=== PATIENT | female | born 1980 | race Caucasian/White ===

== ENCOUNTER 2017-07-02 07:45 | Emergency (ER) | payer OTHER ==
[~2017-07-02] VITALS: Ht 165.1 cm; Wt 47.7 kg
[2017-07-02 07:48] VITALS: BP 110/71; PULSE 83; RESP 16; O2SAT 100
[2017-07-02] MEDS ORDERED: 0.9% Sodium Chloride 1,000 ML IV ONE (07:52)
[2017-07-02] MEDS ORDERED: Ketorolac 15 mg/mL Inj IVPUSH ONE (07:55)
[2017-07-02 08:08] LABS: BASOPHILS % (AUTO) 0.3 % (0-3); MONOCYTES % (AUTO) 4.2 % (4-12); Mean Corpuscular Hemoglobin 29.5 pg (27.0-35.0); Platelet Count 396 bil/L (150-400)
[2017-07-02] MEDS: Ondansetron 2 mg/mL 2 mL Inj IVPUSH PRN ×3 (08:15→12:27)
[2017-07-02] MEDS: HYDROmorphone 0.5 mg/0.5 mL iSecure Syringe IVPUSH PRN ×3 (08:16→12:29)
--- NOTE | 2017-07-02 08:23 | ED.REPORT ---
HPI-Abd Pain F Under 38 Date of Service Jul 02, 2017 ED Provider: Fabián Maier MD Patient is a 37 year old female who presents to the ED complaining of progressively worsening RLQ pain onset 10 days ago. Her pain radiates to her back and down her R thigh. She denies constipation, fever, chills, dysuria, vomiting, or any other symptoms. Pt reports her last period was different then previous periods. She is not sexually active and has not been for some months. Nursing Notes Stated Complaint: ABDOMINAL PAIN Chief Complaint: Female Abdominal Pain Nursing Notes Reviewed: Yes Allergies: Coded Allergies: No Known Allergies (Unverified , 07/02/17) General Time Seen by MD: 07:55 Chief Complaint Abdominal pain Hx Obtained From: Patient Arrived By: Walk-in Sudden in Onset?: No Onset Occurred: 1 week ago (10 days ago) Symptom Duration: Since onset Progression since Onset: Gradually worsening Location: : RLQ Quality: Painful Radiation: : Back Severity: Current: Moderate Severity: Maximum: Moderate Pertinent Negative: Pt denies other symptoms Context Related History: Denies: Abdominal surgery Similar Sx Previous: No Past Medical History Past Medical History Notes: PCP: Wiliam Hernandez Past Medical History 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 Physical Exam Initial Vital Signs Vital Signs (First) Date Time Temp Pulse Resp B/P Pulse Ox O2 Delivery O2 Flow Rate FiO2 07/02/17 07:48 36.5 83 16 110/71 100 Room Air Initial VS: Reviewed, Vital signs normal Head / Eyes: Atraumatic, Normocephalic Neck: Full range of motion Skin: Warm, Dry Neurologic: Alert, Oriented, Nonfocal Psychiatric: Mood/affect normal, Behavior normal, Normal thought content General/Constitutional: Awake, Alert Respiratory / Chest: Atraumatic, Breath sounds NL, Breath sounds = bilat, No respiratory distress Cardiovascular: Heart rate NL, Regular rhythm, Heart sounds NL Tenderness/Guarding/Rebound: Positive: Tender RLQ... Guarding present psoas sign positive Flank / Spine / Paraspinal: Positive: Flank tender R Interpretation & Diagnostics US PELVIC SONOGRAM + TRANSVAGINAL SONOGRAM: IMPRESSION: No significant abnormality can be seen. No appendix can be seen, either normal or abnormal. Note: Concordant preliminary findings given by the computer technician upon the completion of the examination to Dr. Maier at 12:20 PM on July 02, 2017. Dictated by: Jg Rayo M.D. on 07/02/2017 at 12:57 Approved by: Jg Rayo M.D. on 07/02/2017 at 12:59 Lab Results Interpretation Result Diagram: 07/02/17 0804 07/02/17 0804 Test 07/02/17 08:04 07/02/17 08:31 White Blood Count 7.1th/mm3 (3.8-10.1) Red Blood Count 4.65mil/mm3 (3.90-5.20) Hemoglobin 13.7g/dL (12.0-15.6) Hematocrit 40.9% (35.0-46.0) Mean Corpuscular Volume 88.0fL (81-100) Mean Corpuscular Hemoglobin 29.5pg (27.0-35.0) Mean Corpuscular Hemoglobin Concent 33.5% (32.0-37.0) Red Cell Distribution Width 14.1% (12.3-15.4) Platelet Count 396bil/L (150-400) Neutrophils (%) (Auto) 70.0% (40-74) Lymphocytes (%) (Auto) 24.4% (14-46) Monocytes (%) (Auto) 4.2% (4-12) Eosinophils (%) (Auto) 1.0% (0-5) Basophils (%) (Auto) 0.3% (0-3) Sodium Level 139mEq/L (134-144) Potassium Level 4.1mEq/L (3.5-5.2) Chloride Level 102mEq/L (97-108) Carbon Dioxide Level 21mmol/L (18-29) Blood Urea Nitrogen 17mg/dL (6-20) Creatinine 0.56mg/dL (0.57-1.00) Estimat Glomerular Filtration Rate 173mL/min (>59) Glucose Level 87mg/dL (60-99) Lactic Acid Level 0.7mmol/L (0.4-2.0) Calcium Level 9.0mg/dL (8.5-10.1) Magnesium Level 2.2mg/dL (1.6-2.6) Total Bilirubin 0.2mg/dL (0.0-1.2) Aspartate Amino Transf (AST/SGOT) 14U/L (0-50) Alanine Aminotransferase (ALT/SGPT) 9U/L (0-32) Alkaline Phosphatase 43U/L (25-150) Total Protein 7.0g/dL (6.4-8.4) Albumin 4.5g/dL (3.4-5.0) Lipase 35U/L (13-60) Urine Color Yellow (YELLOW) Urine Appearance Hazy (CLEAR,HAZY) Urine pH 5.5 (5.0-8.0) Urine Specific [place] 1.030 (1.003-1.035) Urine Protein Negativemg/dL (NEG,TRACE) Urine Glucose (UA) Negativemg/dL (NEGATIVE) Urine Ketones 15mg/dL (NEGATIVE) Urine Occult Blood Negative (NEGATIVE) Urine Nitrite Negative (NEGATIVE) Urine Bilirubin Negative (NEGATIVE) Urine Urobilinogen Normalmg/dL (NORMAL) Urine Leukocyte Esterase Negative (NEGATIVE) Urine RBC 0-2/hpf (0-2) Urine WBC 0-5/hpf (0-5) Urine Epithelial Cells Occasional/hpf (NONE-MOD) Urine Crystals None seen (NONE SEEN) Urine Bacteria Moderate/hpf (NONE-FEW) Urine Hyaline Casts None/lpf (NONE) Urine Granular Casts None seen (NONE SEEN) Urine Waxy Casts None seen (NONE SEEN) Urine Red Blood Cell Casts None seen (NONE SEEN) Urine White Blood Cell Casts None seen (NONE SEEN) Urine Mucus Present (None Seen) Urine Trichomonas None seen (NONE SEEN) Urine Yeast None (NONE SEEN) Urinalysis Comment None Urine Culture Reflexed Indicated CT Abd / Pelvis Interpretation IMPRESSION: 1. Visualized portions of the appendix are normal. 2. Complex right adnexal cyst. 3. Trace free fluid within the pelvic cul-de-sac is within physiologic limits. Dictated by: Jaz Ndiaye MD, PhD on 07/02/2017 at 11:53 Approved by: Jaz Ndiaye MD, PhD on 07/02/2017 at 12:00 Study type: Abdominal CT IV contrast, Abdom CT oral contrast Interpretation / Wet Read by: Interpret - Radiologist Re-Eval/Medical Decision Re-Evaluation/Progress : Time of Eval: 13:24 Patient Status: Condition improved Re-Evaluation/Progress Note: Patient resting comfortably and crying. I asked her why she was crying and she said that it was related to life stressors and not because of her abdominal pain. I told her that we were unable to discover definitive cause for her pain and the child follow up with her primary care doctor. She articulated understanding of this and agrees to comply with recommendations. Discharge & Departure Primary Impression: Abdominal pain Abdominal location: right lower quadrant Qualified Code: R10.31 - Right lower quadrant pain Discharge Condition All VS Reviewed: Yes Condition: Stable Patient Instructions: Acute Abdominal Pain (ED) Additional Instructions: No dangerous cause for your abdominal pain was discovered today. Follow-up with your doctor in the coming days for further evaluation as indicated. I recommend Tylenol or ibuprofen as needed for pain. I also recommend copious oral hydration and a bland diet for now. Follow up right away for high fever, worsening pain, vomiting or other new or worrisome symptoms. Referrals: OTHER,PHYSICIAN Scribe Attestation Portions of this note were transcribed by Hansel Camacho. I, Dr. Maier personally performed the history, physical exam and medical decision-making; I reviewed and confirmed the accuracy of the information in the transcribed note. Signed by: Sammy Gonzales, 07/02/17 Fabián Maier MD Jul 02, 2017 08:23 HANSEL CAMACHO Jul 02, 2017 09:48
[2017-07-02 08:46] LABS: Magnesium 2.2 mg/dL (1.6-2.6)
[2017-07-02 09:11] LABS: APPEARANCE,URINE HAZY (CLEAR,HAZY); COLOR,URINE YELLOW (YELLOW); OCCULT BLOOD,URINE NEGATIVE (NEGATIVE); PH,URINE 5.5 (5.0-8.0)
[2017-07-02 09:13] LABS: UROBILINOGEN,URINE NORMAL (NORMAL)
[2017-07-02] MEDS ORDERED: Iohexol 300 mg/mL 30 mL Inj PO ONE (10:25)
[2017-07-02 12:30] VITALS: BP 116/71; PULSE 54; RESP 14; O2SAT 99
--- NOTE | 2017-07-02 13:01 | DRSVH ---
PROCEDURE: US PELVIC SONOGRAM + TRANSVAGINAL SONOGRAM INDICATIONS: RLQ pain TECHNIQUE: Real-time scanning was performed of the pelvic organs, with image documentation. Additional endovagi nal scanning was necessary due to incomplete visualization of the adnexal and endometrial structures by transabdominal scanning. COMPARISON: [facility], [place], PELVIC COMPLETE, 06/17/2017, 21:13. [facility], [place], PELVIC COM PLETE, 06/23/2017, 14:22. [facility], CT, CT ABD PELVIS W CON, 07/02/2017, 12:35. FINDINGS: (orthogonal measurements) Uterus size: 5.01 cm, 6.82 cm, 6.79 cm, 10.22 cm, 3.89 cm, 7.47 cm Endometrium thickness: 1.21 cm Right ovary size: 3.00 cm, 2.46 cm, 2.74 cm, 3.29 cm Left ovary size: 2.96 cm, 1.19 cm, 4.24 cm Transabdominal scanning: Limited scanning through the kidneys shows no hydronephrosis. No pathologi c free abdominal or pelvic fluid. No appendix (either normal or abnormal) is identified on this stud y. Endovaginal scanning: Uterus: Uterus is normal in size and appearance. Endometrium is within normal physiologic limits. Ovaries: Within normal physiologic limits. It is made of a simple appearing right ovarian follicula r cyst. IMPRESSION: No significant abnormality can be seen. No appendix can be seen, either normal or abnormal. Note: Concordant preliminary findings given by the contract administration specialist upon the completion of the examination to Dr. Maier at 12:20 PM on July 02, 2017. Dictated by: Jg Rayo M.D. on 07/02/2017 at 12:57 Approved by: Jg Rayo M.D. on 07/02/2017 at 12:59
--- NOTE | 2017-07-02 13:02 | DRSVH ---
PROCEDURE: CT ABDOMEN AND PELVIS WITH CONTRAST ([id number]) INDICATIONS: RLQ pain TECHNIQUE: After the administration of oral and intravenous contrast, 5 mm thick sections acquired from the diap hragms to the symphysis. 5 mm thick coronal and sagittal reformats were performed. For radiation do se reduction, the following was used: automated exposure control, adjustment of mA and/or kV accordi ng to patient size. COMPARISON: None. FINDINGS: Image quality: Excellent. ABDOMEN: Lung bases: Lung bases are clear. Heart size is normal. Solid organs: Liver and spleen are normal in size and enhancement. Focal fatty infiltration noted in the liver adjacent to the falciform ligament. Gallbladder is within normal limits. Biliary system i s non-dilated. Pancreas enhances normally. No adrenal nodules. Kidneys are normal in size and enha ncement, without hydronephrosis. Peritoneum and bowel: Stomach, small bowel, and colon loops are normal in caliber and wall thickness . Trace amount of free fluid is noted in the cul-de-sac of the pelvis which is within physiologic crane its. No free air. Visualized portions of the appendix are normal. Nodes and vessels: No retroperitoneal or mesenteric adenopathy. Aorta and inferior vena cava are no rmal in caliber. Miscellaneous: No ventral hernias. PELVIS: Genitourinary: Bladder wall thickness is normal. Right adnexal cysts are noted. Miscellaneous: No inguinal hernias or adenopathy. Bones: No suspicious bony lesions. No vertebral body compression fractures. IMPRESSION: 1. Visualized portions of the appendix are normal. 2. Complex right adnexal cyst. 3. Trace free fluid within the pelvic cul-de-sac is within physiologic limits. Dictated by: Jaz Ndiaye MD, PhD on 07/02/2017 at 11:53 Approved by: Jaz Ndiaye MD, PhD on 07/02/2017 at 12:00
[2017-07-02 13:42] VITALS: BP 112/73; PULSE 61; RESP 15; O2SAT 100
== END 2017-07-02 13:44 ==
LOC: SED 07:45
DX: R10.31 Right lower quadrant pain (principal); Z87.891 Personal history of nicotine dependence
CPT/HCPCS: 36415; 74177; 76830; 76856; 80053; 81000; 81025; 83605; 83690; 83735; 85025; 87086; 96361; 96374; 96375; 96376; 99285; J1170; J1885; J2405; J7030; Q9967